=== PATIENT | female | born 1950 | race Caucasian/White ===

== ENCOUNTER 2019-03-31 11:12 | Outpatient (CLI) | payer MEDICARE, OTHER ==
[~2019-03-31 11:12] MED LIST: Gadobenate Dimeglumine 529 MG/1 ML (20ML VIAL) ONE
--- NOTE | 2019-03-31 13:51 | MRI ---
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 COMPARISON: Reference is made to brain MRI of 02/26/2017. FINDINGS: Evaluation of the 7th and 8th cranial nerve complexes bilaterally reveals no evidence of mass or path ologic enhancement. 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 No patholog ic enhancement identified within Meckel's cave bilaterally. Mild chronic ischemic disease of the cerebral white matter is present. IMPRESSION: No evidence of mass or pathologic enhancement of either CP angle cistern to correlate with facial ner ve palsy. 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 POS: [facility]
== END 2019-03-31 11:13 | disposition home or self-care (01) ==
LOC: MRI 11:12
PROVIDERS: ATTEND Neurological Surgery
DX: G51.39 Clonic hemifacial spasm, unspecified (principal); G51.0 Bell's palsy
CPT/HCPCS: 70553; A9577

== ENCOUNTER 2024-02-18 11:13 | Outpatient (CLI) | payer MEDICARE, OTHER | END 2024-02-18 11:14 | disposition home or self-care (01) | LOC: SCSRAD 11:13 | PROVIDERS: ATTEND Family Medicine | DX: Z01.818 Encounter for other preprocedural examination (principal) | CPT/HCPCS: 71046 ==